=== PATIENT | female | born 1960 | race Two or more races ===

== ENCOUNTER 2024-06-28 11:10 | Emergency (ER) | payer OTHER, SELFPAY ==
[2024-06-28 11:19] VITALS: BP 130/80; PULSE 77; RESP 19; TEMP 36.8; O2SAT 98; BMI 31.2
--- NOTE | 2024-06-28 11:39 | EDNOTE_ITS ---
ED Wound/Laceration-RME/HPI General Chief Complaint: Wound/Laceration Stated Complaint: GOT HIT W/ PLASTIC BOX AT WORK; LAC TO L EYEBROW Time Seen by Provider: 06/28/24 11:25 Arrival date/time: 06/28/24 11:10 RME / HPI RME / HPI narrative: 63-year-old female patient was brought in by family for evaluation regarding left eyebrow laceration. Patient was working and got hit with a plastic box resulting into 2 cm gaping laceration to the left eyebrow with bruising and swelling. Patient denies any eye pain. Denies any LOC denies any headache denies any neck pain patient is ambulatory tetanus vaccination is unknown. Related Data Previous Rx's ?Medication ?Instructions ?Recorded ibuprofen 800 mg tablet 800 mg PO Q6H PRN pain #30 tabs 06/28/24 Allergies Allergy/AdvReac Type Severity Reaction Status Date / Time chocolate Allergy Severe Anaphylaxis Verified 06/28/24 11:15 egg Allergy Severe Anaphylaxis Verified 06/28/24 11:15 Review of Systems Review of Systems Narrative Review of Systems: Review of system reviewed and within normal limits except mentioned in HPI ED Exam Narrative Physical exam: VITAL SIGNS: Reviewed. GENERAL APPEARANCE: Alert and interactive, follows commands, no acute distress, HEAD AND FACE: 3 cm gaping laceration of the left eyebrow, ENT: PERRL, pink conjunctivitis, eyelid no trauma, full range of motion of extraocular muscle bilateral eyes, mucous membrane moist. NECK: Supple, nontender, no nuchal rigidity. CHEST: No tenderness, no crepitus, no paradoxical movement, no retractions. LUNGS: Clear, well ventilated, symmetric, no rales, no wheezing, no ronchi, no stridor, good breath sounds bilaterally. HEART: Regular rate, regular rhythm, no murmur, no gallops. ABDOMEN: Soft, positive bowel sounds, nondistended, no guarding, nontender, no rebound, no masses, RECTAL: Deferred. GENITAL: Deferred. NEUROLOGICAL: Gross motor function intact sensory function intact, Appropriate for age. MUSCULOSKELETAL: low back nontender, full range of motion. EXTREMITIES: Nontender, full range of motion. SKIN: Color pink, dry, no rash, no lacerations, no abrasions, no contusions. LYMPHATICS: Deferred. Course Quality Measures none Orders Category Date Time Status CT facial bones wo con Stat Exams 06/28/24 11:39 Completed Acetaminophen Tab [Tylenol ES Tab] Med 06/28/24 11:39 Discontinued 1,000 mg PO X1 ONE Lidocaine 1% Pf 5 ml [Xylocaine 1% Pf 5 ml] Med 06/28/24 11:39 Discontinued 10 ml INFL X1 ONE Tet,Diphth,Pertuss(Acell)-Tdap [Boostrix Vacc] Med 06/28/24 11:39 Discontinued 0.5 ml IMI .ONCE ONE Vital Signs Vital signs: Vital Signs Temperature 98.3 F 06/28/24 11:19 Pulse Rate 77 06/28/24 11:19 Respiratory Rate 19 06/28/24 11:19 Blood Pressure 130/80 06/28/24 11:19 Pulse Oximetry (%) 98 06/28/24 11:19 Oxygen Delivery Method Room Air 06/28/24 11:19 Procedures -ED Laceration Laceration 1: Site: other (Left eyebrow) Size (cm): 3 Description: linear Depth: simple, single layer Local Anesthetic: lidocaine 1% Amount of anesthesia used (mL): 5 Pre-repair: wound explored, irrigated extensively and deep structures intact Size (cm): 5-0 Number of sutures: 6 Technique: simple, interrupted Wound / Laceration MDM Narrative MDM Narrative:: 63-year-old female patient came in with family for evaluation regarding left eyebrow laceration. Patient was working and got hit with a plastic box resulting into 2 cm gaping laceration to the left eyebrow with bruising and swelling. Patient denies any eye pain. Denies any LOC denies any headache denies any neck pain patient is ambulatory tetanus vaccination is unknown. CT scan of the face, came back unremarkable. Results discussed with the patient. Repair and suturing was done by me see procedure notes patient stable for discharge. Patient data External records reviewed:: None Clinical information provided by:: patient Social determinants that could affect healthcare access:: none Patient has the following chronic illnesses:: None How is presenting disease/condition affected by chronic disease/condition?: no chronic disease Evaluation data The following diagnostics were reviewed and interpreted by me:: radiology exam(s) Lab and/or radiology exams considered but not ordered:: None Interpretation Summary: CT scan of the face came back unremarkable Medications / Prescriptions Medications or Prescriptions considered but not ordered:: None Medication administrations:: Medication Administration History Discontinued Medications Acetaminophen (Acetaminophen 500 Mg Tablet) 1,000 mg PO X1 ONE Stop: 06/28/24 11:40 Diphtheria/Tetanus/Acell Pertussis (Diphth,Pertuss(Acell),Tet Vac 0.5 Ml Vial) 0.5 ml IMi .ONCE ONE Stop: 06/28/24 11:40 Lidocaine HCl (Lidocaine Inj Pf 1% 5 Ml Vial) 10 ml INFL X1 ONE Stop: 06/28/24 11:40 Tylenol Boostrix Consultations Consultation(s) initiated? (list below): No Diagnosis Wound Differential Diagnosis: laceration, abrasion and avulsion of skin Most likely diagnosis given after review of the tests above:: Left eyebrow laceration Admission Indicated Admission indicated?: not indicated Explain why admission is indicated or not indicated:: Stable Admission Request Was there a request for admission?: No Disposition Plan Disposition Plan: Discharge Discharge Attestation Discharge Attestation: The patient was given an opportunity to ask questions and understood the discharge instructions. Discharge instructions specifically effects, indications for sooner follow up or return to the emergency department, and the expected course of current diagnosis. Patient condition: Stable Discharge Plan Plan Patient Disposition: HOME (Self Care) Disposition Comment: stable Prescriptions/Referrals Prescriptions/Med Rec: New ibuprofen 800 mg tablet 800 mg PO Q6H PRN (Reason: pain) Qty: 30 0RF Problem List Clinical Impression: Laceration of eyebrow, left Patient/Caregiver Discharge Instructions Discharge Activity: activity as tolerated Education Materials: ED Laceration: All Closures Additional Instructions: Thank you for the opportunity for serving you today. You are stable for discharged . You are advised to: Follow-up with your PCP in 1 to 2 days Return to ED for worsening of symptoms Increase oral fluids Take medication as prescribed Daily dressing with Neosporin as needed For removal of sutures in 7 days Print Language: Moldovan Stand Alone Forms: Pr[employer] Award Info., Patient Portal Info Letter PA/IRENE Supervising Physician ASHLEIGH/IRENE Supervising Physician: MD Wanda
--- NOTE | 2024-06-28 11:39 | XR_ITS ---
Examination: CT maxillofacial, without intravenous contrast. 2-D sagittal reconstructions. 3-D reconstructions. Date and time of exam:June 28, 2000 2412 noon INDICATIONS: Injury to the face today with laceration above the left eye CTDI: vol (mGy):19.3 DLP: (mGycm):388 Technique: Multiple axial images of maxillofacial region, 3.0 mm slice thickness. 2-D sagittal and coronal reconstructions. 3-D reconstructions. Low dose protocols were performed. One or more of the following dose reduction techniques were used; automated exposure control, adjustment of the mA and/or KV according to patient size, use of iterative reconstruction technique. Findings: Soft tissue swelling left forehead scalp Frontal bone frontal sinuses intact Orbital rims intact The optic globes exhibit symmetry no retro-orbital hematoma No nasal bone fracture No depression zygomatic arches. Pterygoid plates maxilla and the mandible intact No opaque foreign bodies IMPRESSION: No acute facial fracture.
[2024-06-28] MEDS: DIPHTH,PERTUSS(ACELL),TET VAC 0.5 ML VIAL IMi (13:34)
[2024-06-28] MEDS: ACETAMINOPHEN 500 MG TABLET 1000 MG PO (13:34)
== END 2024-06-28 14:26 | disposition home or self-care (01) ==
LOC: SERX 14:01
PROVIDERS: Emergency Provider Emergency Medicine; PCP Family Medicine
DX: S01.112A Laceration without foreign body of left eyelid and periocular area, initial encounter (principal); W22.8XXA Striking against or struck by other objects, initial encounter; Y93.89 Activity, other specified; Y99.0 Civilian activity done for income or pay; Z23 Encounter for immunization
CPT/HCPCS: 12013; 70486; 90471; 90715; 99284; A9270